=== PATIENT | male | born 2000 | race Caucasian/White ===

== ENCOUNTER 2018-10-21 13:22 | Inpatient (IN) | payer MEDICAID ==
[~2018-10-21] VITALS: Ht 172.7 cm; Wt 67.4 kg
[2018-10-25 19:37] VITALS: BP 117/78
== END 2018-10-26 10:57 | disposition home or self-care (01) | DRG 751 ==
LOC: 3E 15:51
PROVIDERS: ADMIT Psychiatry & Neurology Psychosomatic Medicine; ATTEND Psychiatry & Neurology Psychosomatic Medicine
DX: F29 Unspecified psychosis not due to a substance or known physiological condition (principal); E87.6 Hypokalemia; F10.229 Alcohol dependence with intoxication, unspecified; F17.200 Nicotine dependence, unspecified, uncomplicated; Z71.6 Tobacco abuse counseling
CPT/HCPCS: 36415; 71045; 80048; 80061; 81003; 82140; 82607; 83735; 84132; 84439; 84443; 85025; 85651; 86592; 86704; 86706; 86708; 86803; 87340; 93005

== ENCOUNTER 2020-09-22 17:37 | Emergency (ER) | payer MEDICAID ==
[~2020-09-22] VITALS: Ht 172.7 cm; Wt 77.0 kg
[~2020-09-22 17:37] MED LIST: ACAM333T7 PO; NICO-485 TD
--- NOTE | 2020-09-22 17:57 | NUR ---
BREAK RN::ERP IN SPEAKING WITH PT AT THIS TIME.
--- NOTE | 2020-09-22 18:18 | NUR ---
BREAK RN::PT ABLE TO AMBULATE STEADILY TO BATHROOM IN ATTEMPT TO PROVIDE URINE SAMPLE.
--- NOTE | 2020-09-22 18:25 | NUR ---
Report received from meal break RN and care assumed. Pt reportedly just back from giving UA sample. Warm blanket provided, flat affect with no eye contact noted in pt demeanor but cooperative, calm, and polite in behavior otherwise. Socks provided per pt request as well and call light in reach. Awaiting MD assessment per pt, RN reports MD already in to see him with noted orders present.
[2020-09-22 18:28] LABS: ALANINE AMINOTRANSFERASE 573 U/L (12-78); ALBUMIN 4.3 g/dL (3.4-5.0); ANION GAP 8 mmol/L (5-15); CALCIUM 9.5 mg/dL (8.5-10.1); CHLORIDE 102 mmol/L (98-107); CREATININE 0.88 mg/dL (0.7-1.3)
[2020-09-22 18:31] LABS: ALKALINE PHOSPHATASE 93 U/L (45-117); BILIRUBIN,TOTAL 1.6 mg/dL (0.2-1.0); SALICYLATE LEVEL < 1.7 mg/dL (2.8-20.0); TOTAL PROTEIN 7.9 g/dL (6.4-8.2)
[2020-09-22 18:32] LABS: BASOPHILS % (AUTO) 0 % (0-1); EOSINOPHILS % (AUTO) 0 % (1-7); LYMPHOCYTES % (AUTO) 19 % (22-44); MEAN CORPUSCULAR HEMOGLOBIN 32.2 pg (27.5-34.5); MEAN CORPUSCULAR HGB CONC 35.2 g/dL (33.2-36.2); MEAN PLATELET VOLUME 8.7 fL (7.4-10.4); MONOCYTES % (AUTO) 17 % (2-9); NEUTROPHILS % (AUTO) 63 % (42-75); PLATELET COUNT 154 x10^3/uL (130-400); RED BLOOD COUNT 5.11 x10^6/uL (4.38-5.82)
[2020-09-22 18:45] LABS: AMPHETAMINE SCREEN, URINE Negative (Negative); BARBITURATE SCREEN, URINE Negative (Negative); BENZODIAZEPINE SCREEN, URINE Negative (Negative); CANNABINOID SCREEN, URINE Negative (Negative); COCAINE SCREEN, URINE Negative (Negative); METHADONE SCREEN, URINE Negative (Negative); OPIATE SCREEN, URINE Negative (Negative)
--- NOTE | 2020-09-22 19:18 | NUR ---
Lab results reviewed and VS reassessed. Pt chart marked for recheck by MD at this time. Pt is A/O x4 and denies hallucinations, flat affect remains but pt is otherwise at what is presumed to be baseline.
--- NOTE | 2020-09-22 20:13 | NUR ---
Pt continues to wait for MD reassessment and plan of care. Sprite brought to pt at this time for c/o thirst. Remains calm and cooperative.
--- NOTE | 2020-09-22 20:35 | NUR ---
Spoke with Dr. Galaviz about pt and need for recheck. notified of found ER visit c/o of psychosis in 2019 and states he will go reassess pt and check into this aspect as all lab tests for toxicology are negative today.
--- NOTE | 2020-09-22 20:45 | NUR ---
Asked pt about the 2019 psychosis visit at this time. Pt states his liver enzymes were really elevated and caused his brain to not work right. Denies being dx with schizophrenia, bipolor disorder, or any other mental health disorders. Pt asked if he would like some food and he said yes, so ED tray ordered at this time.
[2020-09-22 21:15] VITALS: BP 120/76
== END 2020-09-22 21:18 | disposition home or self-care (01) ==
LOC: ED 20:45
DX: F23 Brief psychotic disorder (principal); F22 Delusional disorders; F17.200 Nicotine dependence, unspecified, uncomplicated
CPT/HCPCS: 36415; 80053; 80299; 80307; 80320; 80329; 85025; 99284; G0480

== ENCOUNTER 2020-10-31 06:24 | Observation (INO) | payer MEDICAID ==
[~2020-10-31] VITALS: Ht 170.2 cm; Wt 60.0 kg
[2020-10-31] MEDS ORDERED: OLANZAPINE 5 MG TABLET ONE ×2 (06:39→23:44)
--- NOTE | 2020-10-31 06:53 | NUR ---
[facility] PD ON SCENE, STATES PEOPLE IN AREA CALLED 911 D/T SOMEONE KNOCKING ON THEIR DOORS. PT WAS FOUND WANDERING AROUND, RAMBLING TO HIMSELF. PT IS CALM & COOPERATIVE, APPEARS DISTRACTED, MUMBLING TO SELF. DENIES ANY DRUGS OR ETOH. RBS ON SCENE WAS 138. 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 PT REPORTS RECENT BINGING. PT WALKING OUT INTO HALLWAY STATING "THEY ARE CALLING MY NAME, DO YOU HEAR THAT?" PT REDIRECTABLE AT THIS TIME, MEDICATED PER MAR. WCTM.
[2020-10-31 06:56] LABS: BASOPHILS % (AUTO) 0 % (0-1); EOSINOPHILS % (AUTO) 0 % (1-7); LYMPHOCYTES % (AUTO) 8 % (22-44); MEAN CORPUSCULAR HEMOGLOBIN 31.6 pg (27.5-34.5); MEAN CORPUSCULAR HGB CONC 35.5 g/dL (33.2-36.2); MEAN PLATELET VOLUME 8.5 fL (7.4-10.4); MONOCYTES % (AUTO) 11 % (2-9); NEUTROPHILS % (AUTO) 80 % (42-75); PLATELET COUNT 123 x10^3/uL (130-400); RED BLOOD COUNT 5.09 x10^6/uL (4.38-5.82); RED CELL DISTRIBUTION WIDTH 14.6 % (9.4-14.8)
[2020-10-31] MEDS ORDERED: OLANZAPINE 5 MG TABLET PO ONE (07:00)
--- NOTE | 2020-10-31 07:00 | NUR ---
BEDSIDE REPORT FROM NATHALIE MAE FOR TRANSFER OF PATIENT CARE.
--- NOTE | 2020-10-31 07:01 | NUR ---
report to keith brooks, pt care transferred at this time
[2020-10-31 07:04] LABS: AMPHETAMINE SCREEN, URINE Negative (Negative); BARBITURATE SCREEN, URINE Negative (Negative); BENZODIAZEPINE SCREEN, URINE Negative (Negative); CANNABINOID SCREEN, URINE Negative (Negative); COCAINE SCREEN, URINE Negative (Negative); METHADONE SCREEN, URINE Negative (Negative); OPIATE SCREEN, URINE Negative (Negative)
--- NOTE | 2020-10-31 07:05 | NUR ---
PATIENT SITTING ON GURNEY TALKING TO SELF, NO AGITATION NOTED AT THIS TIME, SUICIDE PRECAUTIONS IN PLACE, SITTER IN LINE OF SIGHT. BREAKFAST TRAY ORDERED.
[2020-10-31 07:08] LABS: ALBUMIN 4.1 g/dL (3.4-5.0); ANION GAP 9 mmol/L (5-15); CALCIUM 9.2 mg/dL (8.5-10.1); CHLORIDE 94 mmol/L (98-107)
[2020-10-31 07:13] LABS: SALICYLATE LEVEL < 1.7 mg/dL (2.8-20.0)
[2020-10-31 07:19] LABS: ALANINE AMINOTRANSFERASE 347 U/L (12-78); ALKALINE PHOSPHATASE 112 U/L (45-117); BILIRUBIN,TOTAL 1.6 mg/dL (0.2-1.0); CREATININE 0.79 mg/dL (0.7-1.3); TOTAL PROTEIN 8.1 g/dL (6.4-8.2)
--- NOTE | 2020-10-31 07:30 | NUR ---
FOSTER GRANDMOTHER HUMZA MONTOYA [phone].
--- NOTE | 2020-10-31 07:31 | NUR ---
HUMZA MONTOYA, PATIENT'S FOSTER GRANDMOTHER CALLED IN REGARDS TO PATIENT BEING IN ED. PER GRANDMOTHER PATIENT HAS BEEN ON AN ALCOHOL BINGE FOR THE LAST 2 WEEKS, HOWEVER, WAS DOING BETTER OF TUESDAY OF THIS WEEK. GRANDMOTHER STATES THERE ARE PEOPLE STAYING AT HER HOUSE AND PATIENT BECAME SUSPICIOUS OF ONE OF THEM SAYING THINGS LIKE "HE'S CALLING A BUNCH OF PEOPLE TO COME OVER HERE AND KILL ME." GRANDMOTHER ABLE TO REDIRECT PATIENT. LAST GRANDMOTHER SAW OF PATIENT WAS TUESDAY EVENING AROUND 7 PM AT HER HOUSE, PATIENT REPORTED HE WAS GOING TO BED. GRANDMOTHER STATES PATIENT HAS HISTORY OF BIPOLAR AND REFUSES TO TAKE MEDICATIONS.
--- NOTE | 2020-10-31 08:15 | NUR ---
BREAKFAST TRAY PROVIDED, PATIENT DENIES SI/HI, VSS. SUICIDE PRECAUTIONS IN PLACE, SITTER IN LINE OF SIGHT.
--- NOTE | 2020-10-31 09:34 | NUR ---
PATIENT LAYING IN REYNA TIWARI, SUICIDE PRECAUTIONS IN PLACE, SITTER IN LINE OF SIGHT.
--- NOTE | 2020-10-31 10:44 | NUR ---
PATIENT RESTING IN GURNEY, EYES CLOSED, RESP EVEN AND UNLABORED, SUICIDE PRECAUTIONS IN PLACE, SITTER IN LINE OF SIGHT. LUNCH TRAY ORDERED.
--- NOTE | 2020-10-31 11:44 | NUR ---
PATIENT PACING IN ROOM, TALKING TO SELF, SUICIDE PRECAUTIONS IN PLACE, SITTER IN LINE OF SIGHT.
--- NOTE | 2020-10-31 12:35 | NUR ---
LUNCH TRAY PROVIDED, PATIENT TALKING TO SELF, NO SIGNS OF AGITATION OR AGGRESSION. SUICIDE PRECAUTIONS IN PLACE, SITTER IN LINE OF SIGHT.
[2020-10-31] MEDS ORDERED: OLANZAPINE ODT 10MG ONE (12:43)
--- NOTE | 2020-10-31 12:50 | NUR ---
PATIENT YELLING "STARR WHY'D YOU DO IT, YOU'RE GOING TO MAKE ME GO TO HALFWAY AND GET FUCKED IN THE BUTT." PATIENT POINTING AT ROOM ACROSS THE PATIÑO AND YELLING. ABLE TO GET PATIENT TO TAKE MEDICATION, PATIENT YELLING UNABLE TO BE REDIRECTED, DOOR CLOSED AND PATIENT STARTED POUNDING ON GLASS. BRENDA ALEMAN NOTIFIED, PRN IM MEDICATIONS ORDERED.
[2020-10-31] MEDS ORDERED: SODIUM CHLORIDE 0.9% 1,000 ML IV ONE (13:00)
[2020-10-31] MEDS ORDERED: LORazepam 2 MG/ML, 1ML IM PRN (13:00)
[2020-10-31] MEDS ORDERED: HALOPERIDOL 5 MG/ML IM PRN (13:00)
[2020-10-31] MEDS ORDERED: DIPHENHYDRAMINE 50 MG/ML, 1ML IM PRN (13:00)
[2020-10-31] MEDS ORDERED: OLANZAPINE ODT 10MG PO ONE (13:00)
[2020-10-31] MEDS ORDERED: HYDROXYZINE PAMOATE 50MG CAP PO PRN (13:00)
--- NOTE | 2020-10-31 13:00 | NUR ---
assumed care of pt. report from Roxanne ZELAYA pt here for hallucinations and paranoia. pt is on a legal hold, Eli GUTIERREZ has been to bedside for eval. pt is currently pacing in room and mildly agitated. room secure. sitter present for safety.
--- NOTE | 2020-10-31 13:45 | NUR ---
repory to Julia ZELAYA for lunch
--- NOTE | 2020-10-31 13:52 | NUR ---
BREAK RN: PT GIVEN WATER. NO ACUTE DISTRESS NOTED. PT NOW RESTING IN BED. WILL CONTINUE TO MONITOR WHILE PRIMARY RN IS ON BREAK.
--- NOTE | 2020-10-31 14:28 | NUR ---
Report given to NATHALIE Quinteros
--- NOTE | 2020-10-31 14:30 | NUR ---
patient has become more agitated. he has repeatedly tried to leave his room and at times is crouching in the doorway. patient hsa been hallucinating and yelling at people who are not there attempting to re-orient patient sitter at bedside
--- NOTE | 2020-10-31 14:40 | NUR ---
have had to re-orient patient repeatedly to stay in his room. patient crouching in the doorway
--- NOTE | 2020-10-31 14:50 | NUR ---
patient has left his room again and is pacing in the hallway. patient is becoming more agitated. +paranoid that soemone is going to "beat him up" trying to calm patient. patient cxontinues escalating. security contacted
[2020-10-31] MEDS ORDERED: HALOPERIDOL 5 MG/ML ONE (14:51)
[2020-10-31] MEDS ORDERED: DIPHENHYDRAMINE 50 MG/ML, 1ML ONE (14:51)
[2020-10-31] MEDS ORDERED: LORazepam 2 MG/ML, 1ML ONE (14:51)
--- NOTE | 2020-10-31 15:00 | NUR ---
security has repeatedly tried to calm and re-orient patient. patient has attempted to elope. patient has become agressive and has been restrained by security staff for patient and staff safety
--- NOTE | 2020-10-31 15:10 | NUR ---
patient is restrained and has been medicated. patient continues hallucinating and states that there are ants crawling on his eyes and bees laning on his face. repeated attempts to re-orient patient and calm him
--- NOTE | 2020-10-31 15:30 | NUR ---
pt is still very agitated. +hallucinating talking to himself. pulling on restraints
--- NOTE | 2020-10-31 16:00 | NUR ---
have made multiple attempts to calm and re-orient patient. pt hallucinating and agitated sitter present for safety
[2020-10-31] MEDS ORDERED: ZIPRASIDONE 20 MG INJ IM ONE ×2 (16:26→16:30)
--- NOTE | 2020-10-31 16:30 | NUR ---
pt continues hallucinating and pulling on restraints. vey agitated and talking to himself. swearing. no resp. distress
--- NOTE | 2020-10-31 17:00 | NUR ---
pt agitated. having some periods of drowsiness, but then continues with agitation and pulling on restraints room secure. sitte present for safety
--- NOTE | 2020-10-31 17:30 | NUR ---
no changes. agitation continues. pt in no resp. distress
--- NOTE | 2020-10-31 17:37 | NUR ---
PACKET FAXED TO [facility]
--- NOTE | 2020-10-31 18:00 | NUR ---
pt mostly seeping now. security contacted for restraint removal
--- NOTE | 2020-10-31 18:20 | NUR ---
restraints have been removed. pt resting in position of comfort. no respiratory diostress room secure. sitter present for safety
--- NOTE | 2020-10-31 18:45 | NUR ---
pt continues resting in positon of comfort. room secure. sitter present for safety
--- NOTE | 2020-10-31 19:00 | NUR ---
report to Sarah ZELAYA
--- NOTE | 2020-10-31 19:04 | NUR ---
REPORT RECEIVED FROM GABRIEL ZELAYA
--- NOTE | 2020-10-31 20:00 | NUR ---
PT SUPINE ON REYNA TIWARI. PT RESTING CALMLY. SAFETY PRECAUTIONS IN PLACE, SAFETY ARNOLD DOWN AND SITTER IN VIEW.
[2020-10-31] MEDS: OLANZAPINE 5 MG TABLET PO SCH (21:00)
--- NOTE | 2020-10-31 22:00 | NUR ---
PT REMAINS SUPINE ON GURNEY, RESTING COMFORTABLY WITH EYES CLOSED. SAFETY PRECAUTIONS IN PLACE, SITTER IN VIEW PT DENIES ANY NEEDS AT THIS TIME.
--- NOTE | 2020-11-01 01:12 | NUR ---
TP RN: NATHALIE MARTINEZ WITH [facility] TO [facility] TO EVAL PATIENT WHEN AWAKE.
--- NOTE | 2020-11-01 02:01 | NUR ---
PT SUPINE ON GURNEY RESTING COMFORTABLY WITH EYES CLOSED. PT DENIES ANY NEEDS AT THIS TIME. SAFETY PRECAUTIONS IN PLACE, SAFETY ARNOLD DOWN AND SITTER IN VIEW.
--- NOTE | 2020-11-01 02:29 | NUR ---
PT EVAL BY [facility] NATHALIE MARTINEZ. PT DENIES WANTING TO GO TO ANY OTHER FACILITIES AND DENIES SI/HI AT THIS TIME. COOPERATIVE WITH STAFF. BHU/PSYCH TO RE-EVAL IN THE MORNING. ERP AWARE.
[2020-11-01 05:11] LABS: CHLORIDE 99 mmol/L (98-107)
[2020-11-01 05:17] LABS: ANION GAP 7 mmol/L (5-15); CALCIUM 9.2 mg/dL (8.5-10.1)
--- NOTE | 2020-11-01 07:03 | NUR ---
BEDSIDE REPORT GIVEN TO KARTIK ZELAYA
--- NOTE | 2020-11-01 07:07 | NUR ---
PT ASLEEP WITH EVEN AND UNLABORED RESPIRATION AND EASILY AWAKEN TO THIS RN DOING VITALS. VSS. NADN. SAFETY PRECAUTIONS IN PLACE. SITTER AT BEDSIDE.
[2020-11-01] MEDS ORDERED: OLANZAPINE 5 MG TABLET ONE (08:39)
[2020-11-01] MEDS: OLANZAPINE 5 MG TABLET PO SCH (08:42)
--- NOTE | 2020-11-01 08:59 | NUR ---
PT GIVEN BREAKFAST TRAY. SAT UP AND EAT FOOD. NADN. SAFETY PRECAUTIONS IN PLACE. SITTER AT BEDSIDE.
--- NOTE | 2020-11-01 10:12 | NUR ---
PT ASLEEP WITH EVEN AND UNLABORED RESPIRATIONS. NADN. SAFETY PRECAUTIONS IN PLACE.
--- NOTE | 2020-11-01 11:22 | NUR ---
PT ASLEEP WITH EVEN AND UNLABORED RESPIRATIONS. NADN. SAFETY PRECAUTIONS IN PLACE.
--- NOTE | 2020-11-01 12:00 | NUR ---
PT ASLEEP WITH EVEN AND UNLABORED RESPIRATIONS. NADN. SAFETY PRECAUTIONS IN PLACE. SITTER AT BEDSIDE.
--- NOTE | 2020-11-01 12:10 | NUR ---
PT PROVIDED WITH LUNCH TRAY.
--- NOTE | 2020-11-01 12:12 | NUR ---
SITTER AT BEDSIDE. SAFETY PRECAUTIONS IN PLACE.
--- NOTE | 2020-11-01 15:00 | NUR ---
PT PROVIDED WITH MEAL TRAY. NO OTHER NEEDS AT THIS TIME
--- NOTE | 2020-11-01 19:15 | NUR ---
ASSUMED CARE OF PATIENT FROM BENJY ZELAYA. PATIENT SLEEPING COMFORTABLY IN BED. NO ACUTE DISTRESS NOTED. PATIENT DOES NOT APPEAR TO HAVE ANY CURRENT NEEDS AT THIS TIME.
--- NOTE | 2020-11-01 20:22 | NUR ---
PATIENT SLEEPING COMFORTABLY IN BED. NO ACUTE DISTRESS NOTED. PATIENT DOES NOT APPEAR TO HAVE ANY CURRENT NEEDS AT THIS TIME.
--- NOTE | 2020-11-01 20:57 | NUR ---
PATIENT SLEEPING COMFORTABLY IN BED. NO ACUTE DISTRESS NOTED. PATIENT DOES NOT APPEAR TO HAVE ANY CURRENT NEEDS AT THIS TIME.
--- NOTE | 2020-11-01 22:02 | NUR ---
PATIENT SLEEPING COMFORTABLY IN BED. NO ACUTE DISTRESS NOTED. PATIENT DOES NOT APPEAR TO HAVE ANY CURRENT NEEDS AT THIS TIME.
--- NOTE | 2020-11-01 22:39 | NUR ---
PATIENT SLEEPING COMFORTABLY IN BED. NO ACUTE DISTRESS NOTED. PATIENT DOES NOT APPEAR TO HAVE ANY CURRENT NEEDS AT THIS TIME.
--- NOTE | 2020-11-01 23:48 | NUR ---
PATIENT SLEEPING COMFORTABLY IN BED. NO ACUTE DISTRESS NOTED. PATIENT DOES NOT APPEAR TO HAVE ANY CURRENT NEEDS AT THIS TIME.
--- NOTE | 2020-11-02 00:12 | NUR ---
PATIENT SLEEPING COMFORTABLY IN BED. NO ACUTE DISTRESS NOTED. PATIENT DOES NOT APPEAR TO HAVE ANY CURRENT NEEDS AT THIS TIME.
--- NOTE | 2020-11-02 00:58 | NUR ---
PATIENT SLEEPING COMFORTABLY IN BED. NO ACUTE DISTRESS NOTED. PATIENT DOES NOT APPEAR TO HAVE ANY CURRENT NEEDS AT THIS TIME.
--- NOTE | 2020-11-02 03:08 | NUR ---
pt sleeping, resp even/unlabored. in line of sight of sitter
--- NOTE | 2020-11-02 05:03 | NUR ---
pt sleeping in gurmaynard. resp even/unlabored. in line of sight of michelle
--- NOTE | 2020-11-02 07:15 | NUR ---
PT RESTING CALMLY IN BED AT THIS TIME. PT GIVEN APPLE JUICE. SITTER AT DOOR FOR FREQUENT OBS.
[2020-11-02] MEDS ORDERED: POTASSIUM CHLORIDE 20 MEQ TAB.ER.PRT PO SCH (08:00)
--- NOTE | 2020-11-02 08:12 | NUR ---
PT RESTING CALMLY IN BED AT THIS TIME. SITTER AT DOOR FOR OBS.
[2020-11-02] MEDS ORDERED: POTASSIUM CHLORIDE 20 MEQ TAB.ER.PRT ONE (08:16)
[2020-11-02] MEDS ORDERED: OLANZAPINE 5 MG TABLET ONE (09:36)
[2020-11-02] MEDS: OLANZAPINE 5 MG TABLET PO SCH ×2 (09:42→09:56)
--- NOTE | 2020-11-02 09:59 | NUR ---
PT COOPERATIVE WITH MEDS THIS AM. PT CALM AND DCOOPERATIVE. PT GIVEN MEAL TRAY. VITALS DONE. SITTER AT DOOR FOR OBS
--- NOTE | 2020-11-02 10:38 | NUR ---
PT RESTING CALMLY IN BED. NO STATED NEEDS AT THIS TIME. WILL CONTINUE TO MONITOR. SITTER AT DOOR FOR OBS.
--- NOTE | 2020-11-02 11:21 | NUR ---
PT USED PHONE IN HALLWAY TO CALL FOSTER MOTHER. PT CALM AND COOPERATIVE. WILL CONTINUE TO MONITOR. SITTER AT DOOR FOR OBS.
--- NOTE | 2020-11-02 12:16 | NUR ---
PT GIVEN LUNCH TRAY. NO OTHER STATED NEEDS. SITTER AT DOOR FOR OBS. PREVIOUS FOOD TRAY REMOVED FROM ROOM.
--- NOTE | 2020-11-02 13:51 | NUR ---
REPORT GIVEN TO PIPPA ZELAYA. PT HAS DC PAPERWORK. PT FOSTER MOTHER CALLED TO COME [employer] PT AND TAKE HIM TO [facility].
--- NOTE | 2020-11-02 13:52 | NUR ---
ASSUMED CARE OF PATIENT. REPORT GIVEN FROM NATHALIE TINOCO. PT'S GRANDMOTHER IS ON HER WAY TO GIVE PATIENT A RIDE TO [facility].
[2020-11-02 14:41] VITALS: BP 127/81
--- NOTE | 2020-11-02 14:45 | NUR ---
SPOKE WITH GRANDMOTHER SHE WANTS PT TO TAKE A CAB TO [facility]. PT AGREES. VS STABLE. PT READY FOR DC.
== END 2020-11-02 15:04 | disposition home or self-care (01) ==
LOC: ED 07:12 → EDIP 11:58
PROVIDERS: ADMIT Emergency Medicine; ATTEND Emergency Medicine
DX: F10.259 Alcohol dependence with alcohol-induced psychotic disorder, unspecified (principal); I10 Essential (primary) hypertension; E87.1 Hypo-osmolality and hyponatremia; Z79.899 Other long term (current) drug therapy
CPT/HCPCS: 36415; 80048; 80053; 80299; 80307; 80320; 80329; 84443; 85025; 93005; 96372; 99284; G0378; J1200; J1630; J2060; J3486; G0480